=== PATIENT | female | born 2000 | race Caucasian/White ===

== ENCOUNTER 2018-08-21 00:22 | Emergency (ER) | payer MEDICAID ==
[~2018-08-21] VITALS: Ht 165.1 cm; Wt 63.5 kg
--- NOTE | 2018-08-21 00:25 | NUR ---
PT AMBULATED TO BED 2 WITH CRUTCHES.
[2018-08-21 00:28] VITALS: BP 118/65
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
[2018-08-21] MEDS ORDERED: HYDROcodone/APAP 5/325 MG 1 TAB TAB PO ONE (01:35)
[2018-08-21] MEDS ORDERED: KETOROLAC 60 MG/2 ML VIAL IM ONE (01:35)
--- NOTE | 2018-08-21 02:29 | NUR ---
XRAY AT BEDSIDE.
[2018-08-21 03:37] VITALS: BP 110/73
--- NOTE | 2018-08-21 03:37 | NUR ---
Patient discharged with v/s stable. Written and verbal after care instructions given and explained. Patient alert, oriented and verbalized understanding of instructions. Ambulatory with crutches. All questions addressed prior to discharge. ID band removed. Patient advised to follow up with PMD. Rx of Blunt and Naprosyn given. Patient educated on indication of medication including possible reaction and side effects. Opportunity to ask questions provided and answered.
== END 2018-08-21 03:37 | disposition home or self-care (01) ==
LOC: EDBD 00:22 → MED 00:22
DX: M25.551 Pain in right hip (principal)
CPT/HCPCS: 73502; 81025; 96372; 99283; J1885; Q0092